=== PATIENT | female | born 1980 | race Caucasian/White ===

== ENCOUNTER 2016-12-26 12:42 | Outpatient (CLI) | payer MEDICAID ==
[2016-12-26 18:47] LABS: BASOPHILS # (AUTO) 0.1 10^3/uL (0.0-0.1); BASOPHILS % (AUTO) 0.8 %; EOSINOPHILS # (AUTO) 0.2 10^3/uL (0.0-0.7); EOSINOPHILS % (AUTO) 1.5 %; HCT - HEMATOCRIT 40.4 % (37.0-47.0); HGB - HEMOGLOBIN 13.2 g/dL (12.0-16.0); LYMPHOCYTES # (AUTO) 2.5 10^3/uL (1.5-3.5); LYMPHOCYTES % (AUTO) 21.1 %; MEAN CORPUSCULAR HGB CONC 32.7 g/dL (32.0-36.0); MEAN CORPUSCULAR VOLUME 79.4 fL (81.0-99.0); MONOCYTES # (AUTO) 0.8 10^3/uL (0.0-1.0); MONOCYTES % (AUTO) 6.6 %; NEUTROPHILS # (AUTO) 8.2 10^3/uL (1.5-6.6); RED BLOOD COUNT 5.09 10^6/uL (4.20-5.40); RED CELL DISTRIBUTION WIDTH 14.3 % (12.0-15.0); UNCORRECTED WHITE BLOOD COUNT 11.8 x10^3/uL; WHITE BLOOD COUNT 11.8 x10^3/uL (4.8-10.8)
[2016-12-26 18:49] LABS: BILIRUBIN,URINE NEGATIVE (NEGATIVE)
[2016-12-26 19:03] LABS: ALBUMIN/GLOBULIN RATIO 1.2 (1.0-2.2); BILIRUBIN,TOTAL 0.6 mg/dL (0.2-1.0); BUN - BLOOD UREA NITROGEN 12 mg/dL (6-20); CALCIUM 9.5 mg/dL (8.5-10.3); CARBON DIOXIDE - CO2 26 mmol/L (21-32); CHLORIDE 109 mmol/L (101-111); CHOL/HDL RATIO 4.9 (<4.4); CHOLESTEROL 175 mg/dL; CREATININE 0.8 mg/dL (0.4-1.0); GFR - MDRD 81 (>89); GLUCOSE 90 mg/dL (70-100); HDL CHOLESTEROL 36 mg/dL; LDL/HDL RATIO 3.3 (<4.4); LIPASE 24 U/L (22-51); POTASSIUM 3.9 mmol/L (3.5-5.0); SODIUM 142 mmol/L (135-145); TOTAL PROTEIN 7.9 g/dL (6.7-8.2); TRIGLYCERIDES 105 mg/dL; VLDL CHOLESTEROL 21 mg/dL
[2016-12-26 19:11] LABS: WBC,URINE 0-3 /HPF (0-5)
[2016-12-26 19:33] LABS: HEMOGLOBIN A1C 0.5 g/dL
[2016-12-26 20:09] LABS: H. PYLORI IGG ANTIBODY Negative (Negative); HPYLORI NEG QC Negative (Negative); HPYLORI POS QC POSITIVE (Positive)
== END 2016-12-26 12:43 | disposition home or self-care (01) ==
LOC: LAB.F 12:42
PROVIDERS: ATTEND Internal Medicine
DX: R10.11 Right upper quadrant pain (principal); E66.9 Obesity, unspecified
CPT/HCPCS: 36415; 80053; 80061; 81001; 83036; 83690; 84443; 85025; 87339

== ENCOUNTER 2016-12-26 16:59 | Outpatient (CLI) | payer MEDICAID ==
--- NOTE | 2016-12-31 08:32 | Ultrasound Report ---
RIGHT UPPER QUADRANT ULTRASOUND: 12/26/2016 CLINICAL INDICATION: Pain. TECHNIQUE: Real-time scanning was performed with paper sales representative static images obtained. FINDINGS: The liver measures 16.1 cm. There is a 9 x 6 x 5 mm hemangioma in the left lobe. No susp icious solid hepatic lesion or intrahepatic biliary dilatation is present. The common bile duct frank ures 4 mm. The gallbladder is normal. The right kidney measures 11.7 cm, and appears unremarkable. No ascites is noted. IMPRESSION: INCIDENTAL HEPATIC HEMANGIOMA. NO EVIDENCE OF CHOLELITHIASIS OR BILIARY OBSTRUCTION. JOB #: [id number] EXT JOB #:[id number]
== END 2016-12-26 17:00 | disposition home or self-care (01) ==
LOC: DI 16:59
PROVIDERS: ATTEND Internal Medicine
DX: R10.11 Right upper quadrant pain (principal)
CPT/HCPCS: 76705

== ENCOUNTER 2017-04-12 15:35 | Outpatient (CLI) | payer MEDICAID ==
--- NOTE | 2017-04-12 18:52 | XRAY Report ---
EXAM: RIGHT FOOT RADIOGRAPHY EXAM DATE: 04/12/2017 03:53 PM. CLINICAL HISTORY: Pain, lateral SIDE OF RT FOOT. COMPARISON: None. TECHNIQUE: 3 views. FINDINGS: Bones: Normal. No fractures or bone lesions. Joints: Normal. No subluxations. Soft Tissues: Unremarkable. IMPRESSION: Normal foot radiography. [facility] Referring Provider Line: [phone] SITE ID: [id number]
== END 2017-04-12 15:36 | disposition home or self-care (01) ==
LOC: DI 15:35
PROVIDERS: ATTEND Podiatrist
DX: M79.671 Pain in right foot (principal)

== ENCOUNTER 2017-07-20 14:21 | Outpatient (CLI) | payer MEDICAID ==
[2017-07-20 14:38] LABS: HGB - HEMOGLOBIN 11.5 g/dL (12.0-16.0); MEAN CORPUSCULAR HEMOGLOBIN 26.1 pg (27.0-31.0); MEAN CORPUSCULAR HGB CONC 33.3 g/dL (32.0-36.0); MEAN CORPUSCULAR VOLUME 78.5 fL (81.0-99.0); MEAN PLATELET VOLUME 8.6 fL (7.9-10.8); RED BLOOD COUNT 4.42 10^6/uL (4.20-5.40); RED CELL DISTRIBUTION WIDTH 15.7 % (12.0-15.0); WHITE BLOOD COUNT 9.7 x10^3/uL (4.8-10.8)
[2017-07-20 14:50] LABS: ALBUMIN/GLOBULIN RATIO 1.3 (1.0-2.2); BILIRUBIN,TOTAL 0.5 mg/dL (0.2-1.0); CALCIUM 9.2 mg/dL (8.5-10.3); CREATININE 0.8 mg/dL (0.4-1.0); TOTAL PROTEIN 7.2 g/dL (6.7-8.2)
[2017-07-20 14:56] LABS: HB2 TOTAL 12.4 g/dL; HEMOGLOBIN A1C 0.47 g/dL; HEMOGLOBIN A1C % 5.6 % (4.6-6.2)
[2017-07-20 16:05] LABS: THYROID STIMULATING HORMONE 2.01 uIU/mL (0.34-5.60)
[2017-07-20 16:10] LABS: FREE T4 (FREE THYROXINE) 0.78 ng/dL (0.58-1.64)
[2017-07-20 16:33] LABS: FOLLICLE STIMULATING HORMONE 2.49 mIU/mL
[2017-07-20 16:34] LABS: LUTEINIZING HORMONE 6.43 mIU/mL
== END 2017-07-20 14:22 | disposition home or self-care (01) ==
LOC: LAB 14:21
PROVIDERS: ATTEND Nurse Practitioner Obstetrics & Gynecology
DX: N92.0 Excessive and frequent menstruation with regular cycle (principal)
CPT/HCPCS: 80053; 81599; 82670; 83001; 83002; 83036; 84439; 84443; 84481

== ENCOUNTER 2017-08-19 18:47 | Outpatient (CLI) | payer MEDICAID ==
--- NOTE | 2017-08-20 09:33 | Ultrasound Report ---
PELVIC ULTRASOUND: 08/19/2017 CLINICAL INDICATION: Frequent menstruation. TECHNIQUE: Transabdominal pelvic ultrasound performed for global evaluation. Transvaginal pelvic ultrasound performed for detailed evaluation. Real-time scanning performed and static images obtained. FINDINGS: The uterus is anteverted, measuring 9.8 x 4.8 x 4.5 cm. The endometrium measures 8 mm. No focal myometrial lesion is seen. The left ovary is unremarkable, measuring 3.5 x 2.6 x 1.9 cm. The right ovary is unremarkable, measuring 3.3 x 3.1 x 2.7 cm. Interposed between the right ovary and the uterus is a complex predominantly cystic structure, measuring approximately 3 cm, likely representing a dilated fallopian tube. No free fluid is present. IMPRESSION: LIKELY RIGHT HYDROSALPINX. NO ENDOMETRIAL OR MYOMETRIAL LESION IS APPRECIATED. TD: 08/20/2017 09:32 MTDD
== END 2017-08-19 18:48 | disposition home or self-care (01) ==
LOC: DI 18:47
PROVIDERS: ATTEND Nurse Practitioner Obstetrics & Gynecology
DX: N92.0 Excessive and frequent menstruation with regular cycle (principal)
CPT/HCPCS: 76830; 76856

== ENCOUNTER 2017-09-05 18:35 | Outpatient (CLI) | payer MEDICAID | END 2017-09-05 18:36 | disposition home or self-care (01) | LOC: LAB 18:35 | PROVIDERS: ATTEND Obstetrics & Gynecology | DX: N92.0 Excessive and frequent menstruation with regular cycle (principal); L68.0 Hirsutism | CPT/HCPCS: 36415; 82626; 82627; 85651 ==

== ENCOUNTER 2017-09-25 14:28 | Outpatient (CLI) | payer MEDICAID ==
[2017-09-25 16:08] LABS: THYROID STIMULATING HORMONE 2.48 uIU/mL (0.34-5.60)
[2017-09-25 16:12] LABS: FREE T4 (FREE THYROXINE) 0.71 ng/dL (0.58-1.64)
[2017-09-25 16:35] LABS: FOLLICLE STIMULATING HORMONE 5.66 mIU/mL
[2017-09-25 16:36] LABS: LUTEINIZING HORMONE 9.05 mIU/mL
[2017-09-27 18:47] LABS: DHEA SULFATE 220 mcg/dL (23-266)
[2017-09-28 20:11] LABS: 17-HYDROXYPREGNENOLONE 232 ng/dL
== END 2017-09-25 14:29 | disposition home or self-care (01) ==
LOC: LAB 14:28
PROVIDERS: ATTEND Internal Medicine Endocrinology, Diabetes & Metabolism
DX: L68.0 Hirsutism (principal)
CPT/HCPCS: 36415; 81599; 82530; 82627; 83001; 83002; 84143; 84146; 84270; 84305; 84402; 84403; 84439; 84443

== ENCOUNTER 2017-09-30 16:01 | Outpatient (CLI) | payer MEDICAID ==
[2017-09-30 16:43] LABS: BASOPHILS # (AUTO) 0.1 10^3/uL (0.0-0.1); BASOPHILS % (AUTO) 1.2 %; EOSINOPHILS # (AUTO) 0.1 10^3/uL (0.0-0.7); EOSINOPHILS % (AUTO) 1.6 %; HGB - HEMOGLOBIN 12.3 g/dL (12.0-16.0); LYMPHOCYTES # (AUTO) 2.4 10^3/uL (1.5-3.5); LYMPHOCYTES % (AUTO) 27.3 %; MEAN CORPUSCULAR HEMOGLOBIN 25.4 pg (27.0-31.0); MEAN CORPUSCULAR HGB CONC 32.2 g/dL (32.0-36.0); MEAN CORPUSCULAR VOLUME 78.9 fL (81.0-99.0); MEAN PLATELET VOLUME 9.3 fL (7.9-10.8); MONOCYTES # (AUTO) 0.7 10^3/uL (0.0-1.0); MONOCYTES % (AUTO) 8.5 %; NEUTROPHILS # (AUTO) 5.3 10^3/uL (1.5-6.6); NEUTROPHILS % (AUTO) 61.4 %; PLT - PLATELET COUNT 279 10^3/uL (130-450); RED BLOOD COUNT 4.84 10^6/uL (4.20-5.40); RED CELL DISTRIBUTION WIDTH 14.8 % (12.0-15.0); WHITE BLOOD COUNT 8.7 x10^3/uL (4.8-10.8)
[2017-09-30 16:54] LABS: BILIRUBIN,URINE NEGATIVE (NEGATIVE); GLUCOSE, URINE (UA) NEGATIVE (NEGATIVE); KETONES,URINE (UA) 15 mg/dL (NEGATIVE); LEUKOCYTE ESTERASE, URINE NEGATIVE (NEGATIVE); NITRITE,URINE NEGATIVE (NEGATIVE); OCCULT BLOOD,URINE SMALL (NEGATIVE); PH,URINE 5.5 PH (5.0-7.5); PROTEIN,URINE NEGATIVE (NEGATIVE); UROBILINOGEN,URINE 0.2 (NORMAL) E.U./dL (NORMAL)
[2017-09-30 16:57] LABS: CLARITY,URINE HAZY (CLEAR); HCG UR QUAL NEGATIVE
[2017-09-30 16:58] LABS: ALBUMIN 4.5 g/dL (3.2-5.5); ALBUMIN/GLOBULIN RATIO 1.3 (1.0-2.2); BILIRUBIN,TOTAL 0.6 mg/dL (0.2-1.0); CALCIUM 9.4 mg/dL (8.5-10.3); CREATININE 0.9 mg/dL (0.4-1.0); TOTAL PROTEIN 8.1 g/dL (6.7-8.2)
== END 2017-09-30 16:02 | disposition home or self-care (01) ==
LOC: LAB 16:01
PROVIDERS: ATTEND Obstetrics & Gynecology
DX: R10.2 Pelvic and perineal pain (principal); N92.0 Excessive and frequent menstruation with regular cycle
CPT/HCPCS: 36415; 80053; 81003; 81025; 85025; 86850; 86900; 86901

== ENCOUNTER 2017-10-02 06:09 | Day surgery (SDC) | payer MEDICAID ==
--- NOTE | 2017-09-30 18:22 | PREOP HISTORY & PHYSICAL ---
DATE OF SERVICE: 09/25/2017 Physician: Silverio Vargas MD DIAGNOSES: Bilateral lower quadrant pain; severe dysmenorrhea and menorrhagia. PROCEDURE: Laparoscopy with possible ablation of endometriosis; hysteroscopy and dilation and curettage. HISTORY OF PRESENT ILLNESS: Patient is a 37-year-old nulligravida who originally presented to [facility] for heavy menses that lasted greater than seven days and included clots. Endometrial biopsy was performed. Pelvic ultrasound revealed a normal size uterus with an 8 mm stripe. No fibroids were visualized. Between the right and left ovary there was a complex cystic structure, approximately 3 cm in dilation. There is no free fluid. Patient had male hair patterning. Basic endocrinology labs noted a testosterone normal at 36 nanograms/dL. DHEA 304 normal. DHEAS normal, hemoglobin A1c 81. Fasting glucose 94, normal. Originally patient was thought to have polycystic ovarian syndrome. Patient was followed and consistently complained of lower quadrant pain and severe dysmenorrhea, left-sided greater than right. There was no GI, dietary or association with bowel movement. At times, her pain was quite severe, 7/10-8/ 10. She is not interested in contraception since she wants to achieve . We discussed trial of Lupron, which was rejected. Her last Pap in July was normal. PAST MEDICAL HISTORY: No chronic cardiovascular or pulmonary disease. History of gastric reflux. PAST SURGICAL HISTORY: No prior surgeries. REVIEW OF SYSTEMS CONSTITUTIONAL: Negative. CARDIOVASCULAR: Negative. PULMONARY: Negative. GASTROINTESTINAL: Negative. GENITOURINARY: Reference HPI and outpatient notes. SKIN: Patient notes hair loss. MUSCULOSKELETAL: No reported joint pain or joint tenderness. PSYCHOLOGIC: -- PHYSICAL EXAMINATION GENERAL: Well groomed, wearing a fur cap due to relative baldness. VITAL SIGNS: Posted. HEENT: Supple neck. No thyromegaly. Dentition in good repair. No icteric sclerae. EOMI. LUNGS: Clear. HEART: Regular, no murmur, no gallop. BREASTS: Deferred. ABDOMEN: Truncal obesity. No hepatosplenomegaly. Reported lower quadrant tenderness bilaterally. No herniations detected. PELVIC: External genitalia normal. Bartholin glands. No vulvovaginitis. VAGINA: Normal moisture, pink. No prolapse. No abnormal discharge. CERVIX: Nulliparous. Clear mucous discharge, no ulceration. UTERUS: Normal size, anteverted, anteflexed. ADNEXA: Nontender, normal ovarian size. MUSCULOSKELETAL: No range of motion, normal ambulation. No edema. NEUROLOGIC: Grossly intact. LABORATORY DATA: Pending. ASSESSMENT: Patient has longstanding pelvic pain complaints. It was originally thought to be polycystic ovarian syndrome. The pain is fairly severe and the patient wishes to preserve fertility if possible. A laparoscopy is recommended to rule out endometriosis or adhesive disease/PID. Cultures are negative. Additionally, there is heavy uterine bleeding and patient has a stenotic cervical os. Hysteroscopy is recommended for study. PLAN: Discussed possible diagnosis inclusive of pelvic inflammatory disease, endometriosis, adhesive disease and severe dysmenorrhea. Patient is aware that a laparoscopy, hysteroscopy may not be revealing in terms of her diagnosis. Risks were reviewed, inclusive of blood loss, potential transfusion, perforation, damage to bowel and urinary tract and a second surgery. No guarantee was given of a cure and that there is a component of postoperative pain. After discussing the mechanics of the procedure, patient wishes that her laparoscopy entry wound be placed below the umbilicus and not within the umbilical ring. Additionally, due to her kotlik beliefs, if any tissue is taken, it should be returned to her after pathology examination. All questions were answered and informed consent paperwork signed. TD: 09/30/2017 18:21 JUAN JOSE
[2017-10-02] MEDS ORDERED: LACTATED RINGERS 1,000 ML IV ONE ×2 (06:30→08:47)
[2017-10-02 06:41] VITALS: BP 133/57
[2017-10-02] MEDS ORDERED: BUPIVACAINE 0.25%-EPI 1:200000 PF 30 ML VIAL ONE (07:27)
[2017-10-02] MEDS ORDERED: ONDANSETRON 4 MG/2 ML VIAL IVP ONE (08:10)
[2017-10-02] MEDS ORDERED: NEOSTIGMINE 1 MG/1 ML 10 ML MDV IVP ONE (08:10)
[2017-10-02] MEDS ORDERED: KETOROLAC 30 MG/ML VIAL IVP ONE (08:10)
[2017-10-02] MEDS ORDERED: MIDAZOLAM 2 MG/2 ML VIAL IVP ONE (08:10)
[2017-10-02] MEDS ORDERED: DEXAMETHASONE 4 MG/ML VIAL IVP ONE (08:10)
[2017-10-02] MEDS ORDERED: PROPOFOL 200 MG/20 ML VIAL IVP ONE (08:10)
[2017-10-02] MEDS ORDERED: fentaNYL 100 MCG/2 ML VIAL IVP ONE (08:10)
[2017-10-02] MEDS ORDERED: ROCURONIUM 50 MG/5 ML VIAL IVP ONE (08:10)
[2017-10-02] MEDS ORDERED: GLYCOPYRROLATE 1 MG/5 ML VIAL IVP ONE (08:10)
[2017-10-02] MEDS ORDERED: METHYLENE BLUE 0.5% 50 MG/10 ML AMPULE ONE (08:44)
[2017-10-02] MEDS ORDERED: METHYLENE BLUE 0.5% 50 MG/10 ML AMPULE IR ONE (09:05)
[2017-10-02] MEDS ORDERED: BUPIVACAINE 0.25%-EPI 1:200000 PF 30 ML VIAL SUBQ ONE ×2 (09:05)
--- NOTE | 2017-10-02 10:05 | OPERATIVE REPORT ---
Operative Report - General Procedure Date: 10/02/17 Planned Procedure: Diagnostic laparoscopy; hysteroscopy; possible D&C Pre-Op Diagnosis: Bilateral lower quadrant and pelvic pain; menorrhagia Procedure Performed: Diagnostic laparoscopy; hysteroscopy with hysteroscopic polypectomy; excision of inflammatory cystic pelvic mass; lysis of extensive adhesions Post Op Diagnosis: Pelvic inflammatory disease; inflammatory pelvic cystic masses; multiple ut - Procedure Note Primary Surgeon: Silverio Vargas MD Secondary Surgeon: Abdirizak Lindo MD (consulting surgery, general surgery) Anesthesia Technique: General ET tube Pathology: Cystic mass from pelvis and peritoneal IV Fluids (mL): 1,500 Estimated Blood Loss (mL): 50 Urine Output (mL): 350 Drain/Tube Type: Other (Birmingham catheter clear urine) Complications: None
[2017-10-02] MEDS: MORPHINE 10 MG/ML VIAL ONE ×4 (11:05→11:17)
[2017-10-02] MEDS: fentaNYL 100 MCG/2 ML VIAL ONE ×2 (11:25→11:31)
[2017-10-02] MEDS ORDERED: ONDANSETRON 4 MG/2 ML VIAL IVP PRN (12:29)
[2017-10-02] MEDS: cefOXitin 2 GM in SODIUM CHLORIDE 0.9% MINIBAG 100 ML IV SCH ×3 (12:37→22:53)
[2017-10-02] MEDS: KETOROLAC 30 MG/ML VIAL IVP SCH (12:37)
[2017-10-02] MEDS: MORPHINE 2 MG/ML SYRINGE IVP PRN ×2 (12:57→17:12)
[2017-10-02] MEDS: LACTATED RINGERS 1,000 ML IV SCH ×2 (12:58→21:47)
[2017-10-02] MEDS ORDERED: SODIUM CHLORIDE FLUSH 0.9% 10 ML SYRINGE ONE (12:59)
[2017-10-02] MEDS: DOXYCYCLINE 100 MG TABLET PO SCH ×2 (15:28→22:47)
[2017-10-02] MEDS ORDERED: HYDROcod/ACETAM 5/325 MG TABLET PO SCH (16:00)
[2017-10-02] MEDS ORDERED: HYDROcod/ACETAM 5/325 MG TABLET PO PRN (17:23)
--- NOTE | 2017-10-02 17:42 | OPERATIVE REPORT ---
DATE OF SERVICE: 10/02/2017 Physician: Silverio Vargas MD PREOPERATIVE DIAGNOSES 1. Bilateral lower quadrant and pelvic pain. 2. Menorrhagia. POSTOPERATIVE DIAGNOSES 1. Pelvic inflammatory disease. 2. Inflammatory cystic masses. 3. Extensive pelvic adhesions. 4. Uterine fibroid, posterior aspect. 5. Multiple endometrial polyps, benign appearing. PROCEDURES PERFORMED 1. Diagnostic laparoscopy. 2. Hysteroscopy with hysteroscopic polypectomies w Myosure. 3. Excision of inflammatory cystic pelvic mass. 4. Lysis of extensive adhesions. SURGEON: Silverio Vargas MD, FACOG CONSULTING SURGEON: Abdirizak Lindo MD, FACS ANESTHESIA: Jerome Granado, certified nurse machine cloth examiner ANESTHESIA TYPE: General with ET tube. COMPLICATIONS: None. ESTIMATED BLOOD LOSS: 50 mL or less. INTRAVENOUS FLUIDS: 1500 mL crystalloids. URINE OUTPUT: 350 mL, clear. DRAINS: Birmingham, functional with clear fluid. FINDINGS: External exam finds no vulvar lesions. The vagina appears normal with pinkish mucosa and rugae. There is no evidence of prolapse. The cervix is nulliparous with blood-tinged cervical mucus. Uterus is normal, anteverted, and slightly anteflexed. Laparoscopy finds extensive pelvic adhesions involving the rectal colon and posterior surface of the uterus and a inflammatory mass in the Right adnexa. The mass has cystic component with inflammatory vessels. The mass measures approximately 4 x 3 cm. There are adhesions extending from the mass to the lower left ovarian fossa and ascending colon. There was a vascular adhesion between the ascending colon and the abdominal sidewall. Initially the appendix was suspected to be involved but inspection showed it to be without pathological change. Post adhesional lysis and cyst excision chromopertubation was done that demonstrated both tubes were open. Hysteroscopy reveals multiple polypoid growths, at least 4, on the posterior and anterior surface of the uterine lining. Cornua areas are open to flow. Post-hysteroscopy, all aforementioned polypoid growths were removed. INDICATIONS AND INFORMED CONSENT: Patient reported bilateral lower quadrant pain left greater than right. In addition there was a long-standing complaint of pelvic pain and suspected subfertility. The procedure first objective was to investigate her pain then remove the cystic mass documented on ultrasound and finally conserve fertility if possible. Laparoscopy and the intended procedure were discussed with the patient and her in detail. She is aware the risk: Blood loss, transfusion, infection, damage to urinary tract and intestines. No guarantee of pain relief was made. If possible, patient desires conservation of her tubes and ovaries. DESCRIPTION OF PROCEDURE: Patient was brought to the operating room and placed on the table in the supine position. She was uneventfully induced and intubated. She was moved to the low dorsal lithotomy position in [facility]. She was prepped and draped in a customary sterile fashion. Time-out briefing was done per protocol. HUMI uterine manipulator and Birmingham catheter were inserted. A small incision was placed under the umbilical skin fold outside of the umbilical ring as the patient requested. 5 mm Visiport trocar was then placed under direct visualization through the skin wound, fascial layers and into the peritoneal cavity uneventfully. The abdominal cavity was insufflated with CO2 gas under 12 mm of pressure. 5 mm left and right lower quadrant operating ports were then placed. The abdominal cavity was assessed. First the adhesion gluing the right ascending colon to the abdominal sidewall and anterior wall was lysed with LigaSure. Multiple applications in a methodical sequence bites were necessary and the dissection stayed as far away from the colon to minimize the chance of thermal injury. Next the Right adnexal mass was placed on medial tension to facilitate dissection. In a methodical fashion, the adhesions were lysed with LigaSure until the mass itself was liberated from the right tube, right ovary and ovarian fossa. This allowed access to the posterior uterine adhesions. These were lysed with blunt and sharp dissection augmented with LigaSure in a methodical Min fashion that maintained a margin of safety to prevent colonic thermal injury. The mass included thick adhesions of colonic epiploica and possibly appendix. Dr. Lindo of general surgery was called into consultation. The dissection was continued with the use of LigaSure. Once the mass was liberated from the colon it was evident that the appendix was uninvolved. It was elected to leave the appendix intact. In order to remove the inflammatory mass, the right lower quadrant operating port was traded up from a 5 mm Visiport to a 12 mm port. Catch bag was inserted into the abdomen and the inflammatory mass inserted into the catch bag; after which, the 12 mm port and catch bag were removed as one intact without rupture of the bag. Elbert Macedo closure device was then used to close the abdominal fascia defect with 2-0 Vicryl sutures. At this point Dr. Lindo scrubbed out of the case. Dilute methylene blue solution (250 cc sterile normal saline with 1 vial of sterile methylene blue) was then injected through the HUMI central port. Both tubes filled with blue dye and spilled through the fimbriated ends. Next all CO2 gas was removed from the abdomen and 500 cc of sterile normal saline placed. The patient was placed in a deep Trendelenburg to facilitate complete evacuation of CO2. Next all trochars were removed. The skin was closed with interrupted subcuticular stitches of 4-0 Monocryl and dressed with Dermabond. Approximately 30 cc of quarter percent Marcaine with epinephrine was then placed into each of the trocar wounds for patient comfort. Next the HUMI manipulator was removed. The anterior cervical lip was grasped with a single-tooth tenaculum for stabilization. The endocervical canal was then gently dilated to Hegar size 7. 30 hysteroscope was then inserted into the uterine cavity under direct visualization. There were multiple benign appearing polyps. Miyosure was then inserted through the central operating port of the hysteroscope. In a systematic fashion the polyps were shaved to the base of the endometrium. Care was taken not to be over aggressive with myossure to prevent denuding excessive amounts of endometrium. Pre-and postoperative photos were taken. Patient was then awakened from general anesthesia and extubated. She went to the recovery room in stable condition. For pain control it is expected that the patient will remain overnight as a same day surgery boarder and be reevaluated in the morning. Additionally, the patient is nulligravida and has pelvic inflammatory disease; accordingly, we will begin a 24 hour course of IV antibiotics with Mefoxin and doxycycline. We do not anticipate hospitalization to last more than 24 hours. Patient and family were informed of intraoperative events. TD: 10/02/2017 12:47 JUAN JOSE
[2017-10-02] MEDS: IBUPROFEN 600 MG TABLET PO PRN (20:02)
[2017-10-03] MEDS: DOXYCYCLINE 100 MG TABLET PO SCH ×2 (02:36→16:18)
[2017-10-03] MEDS: IBUPROFEN 600 MG TABLET PO PRN ×4 (02:36→19:49)
[2017-10-03] MEDS: LACTATED RINGERS 1,000 ML IV SCH ×3 (03:35→14:29)
[2017-10-03] MEDS: cefOXitin 2 GM in SODIUM CHLORIDE 0.9% MINIBAG 100 ML IV SCH ×3 (04:02→16:18)
[2017-10-03 07:12] LABS: BASOPHILS % (AUTO) 0.3 %; EOSINOPHILS % (AUTO) 0.3 %; HGB - HEMOGLOBIN 9.7 g/dL (12.0-16.0); LYMPHOCYTES # (AUTO) 2.3 10^3/uL (1.5-3.5); LYMPHOCYTES % (AUTO) 18.7 %; MEAN CORPUSCULAR HEMOGLOBIN 25.1 pg (27.0-31.0); MEAN CORPUSCULAR HGB CONC 31.7 g/dL (32.0-36.0); MEAN CORPUSCULAR VOLUME 79.2 fL (81.0-99.0); MEAN PLATELET VOLUME 8.8 fL (7.9-10.8); MONOCYTES # (AUTO) 1.3 10^3/uL (0.0-1.0); MONOCYTES % (AUTO) 10.8 %; NEUTROPHILS # (AUTO) 8.6 10^3/uL (1.5-6.6); NEUTROPHILS % (AUTO) 69.9 %; PLT - PLATELET COUNT 210 10^3/uL (130-450); RED BLOOD COUNT 3.87 10^6/uL (4.20-5.40); WHITE BLOOD COUNT 12.3 x10^3/uL (4.8-10.8)
[2017-10-03] MEDS: KETOROLAC 30 MG/ML VIAL IVP SCH (11:54)
--- NOTE | 2017-10-03 19:30 | PROVIDER PROGRESS NOTE ---
Subjective - Prog Note Date Prog Note Date: 10/03/17 Prog Note Time: 10:00 - Subjective Pt reports feeling: Improved Subjective: Patient feels well but her pain is not completely controlled. Earlier in her extended-stay she had nausea but this is been controlled with Zofran. She has no fevers, chills or foul discharge. He is tolerating fluids and solids at this time. She has not had a bowel movement. Objective - Vital Signs/Intake & Output Intake & Output: Intake & Output 09/30/17 10/01/17 10/02/17 10/03/17 23:59 23:59 23:59 23:59 Intake Total 1200 2898 Output Total 350 Balance 850 2898 - Lab Results Fish Bones: 10/03/17 07:07 Other Labs: Lab Results x24hrs 10/03/17 Range/Units 07:07 WBC 12.3 H (4.8-10.8) x10^3/uL RBC 3.87 L (4.20-5.40) 10^6/uL Hgb 9.7 L (12.0-16.0) g/dL Hct 30.6 L (37.0-47.0) % MCV 79.2 L (81.0-99.0) fL MCH 25.1 L (27.0-31.0) pg MCHC 31.7 L (32.0-36.0) g/dL RDW 15.0 (12.0-15.0) % Plt Count 210 (130-450) 10^3/uL MPV 8.8 (7.9-10.8) fL Neut # 8.6 H (1.5-6.6) 10^3/uL Lymph # 2.3 (1.5-3.5) 10^3/uL Comal # 1.3 H (0.0-1.0) 10^3/uL Eos # 0.0 (0.0-0.7) 10^3/uL Baso # 0.0 (0.0-0.1) 10^3/uL Absolute Nucleated RBC 0.00 x10^3/uL Nucleated RBC % 0.0 /100WBC Exam - Exam Vital Signs: Vital Signs (72 hours) 10/02/17 10/02/17 10/02/17 06:39 10:08 10:11 Temperature 97.2 F L Heart Rate [ 72 Apical] Respiratory 16 Rate Blood Pressure 133/57 H [Brachial artery] O2 Saturation 100 100 100 10/02/17 10/02/17 10/02/17 10:16 10:20 10:26 Temperature Heart Rate [ Apical] Respiratory Rate Blood Pressure [Brachial artery] O2 Saturation 100 100 100 10/02/17 10/02/17 10/02/17 10:36 10:40 10:45 Temperature Heart Rate [ Apical] Respiratory Rate Blood Pressure [Brachial artery] O2 Saturation 100 100 100 10/02/17 10/02/17 10/02/17 10:51 11:00 11:10 Temperature Heart Rate [ Apical] Respiratory Rate Blood Pressure [Brachial artery] O2 Saturation 100 100 100 10/02/17 10/02/17 10/02/17 11:20 11:25 11:33 Temperature Heart Rate [ Apical] Respiratory Rate Blood Pressure [Brachial artery] O2 Saturation 100 100 96 10/02/17 11:40 Temperature Heart Rate [ Apical] Respiratory Rate Blood Pressure [Brachial artery] O2 Saturation 99 General: Oriented x3, Mild distress HEENT: Mucous membr. moist/pink Lungs: Clear to auscultation Cardiovascular: Regular rate, No murmurs Abdomen: Normal bowel sounds, Other (Appropriate postsurgical tenderness) Extremities: No edema Skin: No rashes Neurological: Normal speech, Normal tone, Sensation intact, Cranial nerves 3-12 NL Psych/Mental Status: Mental status NL, Mood NL Assess/Plan - Additional Planning My Orders: My Active Orders 10/03/17 03:30 Doxycycline [Vibramycin] 100 mg PO Q12H Assessment/Plan - Assessment/Plan Assessment: Patient was diagnosed with pelvic inflammatory disease and in fact had a large cystic inflammatory mass removed from the right adnexa. She was begun on cefotetan in doxycycline is recommended for nulligravida is who have been diagnosed with PID. The medications have been well tolerated. Patient's pain is gradually coming into control. Anticipate patient may be ready for discharge by late afternoon. Plan: If patient continues to improve she may be discharged later this afternoon. In preparation for discharge I reviewed warning sign and callback instructions. Patient had previously had prescriptions for Motrin, hydrocodone 5 mg and Colace written.
--- NOTE | 2017-10-03 19:36 | Discharge Plan ---
Discharge Plan Disposition: 01 Home, Self Care Condition: Good Diet: Regular Activity Restrictions: Activity as Tolerated Shower Restrictions: No Driving Restrictions: No Weight Bearing: Full Weight No Smoking: If you smoke, Please STOP! Call for help. Follow-up with: Lynn Molina MD [Primary Care Provider] -
== END 2017-10-03 20:00 | disposition home or self-care (01) ==
LOC: SDS 06:09 → OBS 12:26 → SDS 10-03 20:00
PROVIDERS: ATTEND Obstetrics & Gynecology
PROC: 0UDB8ZX Extraction of Endometrium, Via Natural or Artificial Opening Endoscopic, Diagnostic (ICD-10-PCS; 2017-10-02)
PROC: 0DBW4ZZ Excision of Peritoneum, Percutaneous Endoscopic Approach (ICD-10-PCS; 2017-10-02)
PROC: 3E1P78Z Irrigation of Female Reproductive using Irrigating Substance, Via Natural or Artificial Opening (ICD-10-PCS; 2017-10-02)
PROC: 0UB98ZX Excision of Uterus, Via Natural or Artificial Opening Endoscopic, Diagnostic (ICD-10-PCS; principal; 2017-10-02 07:30)
DX: N73.9 Female pelvic inflammatory disease, unspecified (principal); K66.8 Other specified disorders of peritoneum; N73.6 Female pelvic peritoneal adhesions (postinfective); N92.0 Excessive and frequent menstruation with regular cycle; D25.9 Leiomyoma of uterus, unspecified; R11.0 Nausea
CPT/HCPCS: 36415; 58558; 58662; 85025; 87070; 87205; A9270; J2270; J7120; 88108; 88305

== ENCOUNTER 2018-01-27 08:03 | Emergency (ER) | payer MEDICAID ==
--- NOTE | 2018-01-27 08:21 | ED Physician Documentation ---
PD HPI CHEST PAIN - Stated complaint Stated Complaint: SOA/FATIGUE/CHEST TIGHTNESS - Chief complaint Chief Complaint: General - History obtained from History obtained from: Patient - History of Present Illness Timing - onset: Last night, Yesterday Timing - onset during: Rest Timing - duration: Hours (12-18) Timing - details: Gradual onset, Still present Quality: Pressure, Tightness Location: Substernal, Left chest Radiation: No: Jaw, Neck, Back Improved by: No: Rest Worsened by: No: Exertion, Inspiration, Palpation Associated symptoms: Shortness of air, Feeling faint / dizzy. No: Diaphoresis, Nausea, General Weakness, Palpitations, Cough Similar symptoms before: Has not had sx before Recently seen: Not recently seen Review of Systems Constitutional: denies: Fever, Chills, Myalgias Nose: denies: Rhinorrhea / runny nose, Congestion Throat: denies: Sore throat Cardiac: reports: Chest pain / pressure, Palpitations. denies: Pedal edema, Calf pain Respiratory: reports: Dyspnea. denies: Cough, Wheezing GI: denies: Abdominal Pain, Nausea, Vomiting : denies: Dysuria, Frequency Skin: denies: Rash, Lesions Neurologic: reports: Generalized weakness. 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 - Present Medications Home Medications: Ambulatory Orders Medication Instructions Recorded Confirmed Dexamethasone [Decadron] 4 mg PO DAILY #5 tablet 01/27/18 Tramadol HCl 50 mg PO Q6H PRN #20 tablet 01/27/18 - Allergies Allergies/Adverse Reactions: Allergies Allergy/AdvReac Type Severity Reaction Status Date / Time egg Allergy Unknown Verified 09/30/17 16:21 milk Allergy Unknown Verified 09/30/17 16:21 peanut Allergy Unknown Verified 09/30/17 16:21 wheat Allergy Unknown Verified 09/30/17 16:21 - Social History Does the pt smoke?: No Smoking Status: Never smoker - Family History Family history: reports: CAD PD ED PE NORMAL - Vitals Vital signs reviewed: Yes - General General: Alert and oriented X 3, No acute distress, Well developed/nourished - HEENT HEENT: Moist mucous membranes, Pharynx benign - Neck Neck: Supple, no meningeal sign, No bony TTP, No adenopathy - Cardiac Cardiac: RRR, No murmur - Respiratory Respiratory: Clear bilaterally, Other (no chestwall tenderness) - Abdomen Abdomen: Soft, Non tender - Female Female : Deferred - Rectal Rectal: Deferred - Back Back: No CVA TTP - Derm Derm: Normal color, Warm and dry - Extremities Extremities: No deformity, No tenderness to palpate, Normal ROM s pain, No edema , No calf tenderness / cord - Neuro Neuro: Alert and oriented X 3, No motor deficit, Normal speech Results - Vitals Vitals: Oxygen O2 Source Room air - EKG (time done) 08:17 Rate: Rate (enter#) (86) Rhythm: NSR [place]: Normal Intervals: Normal MS QRS: Normal Ischemia: Normal ST segments. No: ST elevation c/w ischemia, ST depression Compare to prior EKG: Old EKG unavailable - Labs Labs: Laboratory Tests 01/27/18 01/27/18 01/27/18 08:24 08:24 08:24 WBC 11.8 H RBC 4.43 Hgb 11.8 L Hct 35.4 L MCV 79.8 L MCH 26.6 L MCHC 33.3 RDW 15.1 H Plt Count 221 MPV 9.3 Neut # (Auto) 9.3 H Lymph # (Auto) 1.9 Reeves # (Auto) 0.5 Eos # (Auto) 0.0 Baso # (Auto) 0.1 Absolute Nucleated RBC 0.00 Nucleated RBC % 0.0 ESR Sodium 138 Potassium 3.4 L Chloride 107 Carbon Dioxide 23 Anion Gap 8.0 BUN 17 Creatinine 0.9 Estimated GFR (MDRD) 70 L Glucose 110 H Calcium 9.1 Total Bilirubin 0.7 AST 20 ALT 17 Alkaline Phosphatase 66 Troponin I < 0.04 B-Natriuretic Peptide Total Protein 7.3 Albumin 4.3 Globulin 3.0 Albumin/Globulin Ratio 1.4 Lipase 40 01/27/18 01/27/18 08:24 08:24 WBC RBC Hgb Hct MCV MCH MCHC RDW Plt Count MPV Neut # (Auto) Lymph # (Auto) Reeves # (Auto) Eos # (Auto) Baso # (Auto) Absolute Nucleated RBC Nucleated RBC % ESR 11 Sodium Potassium Chloride Carbon Dioxide Anion Gap BUN Creatinine Estimated GFR (MDRD) Glucose Calcium Total Bilirubin AST ALT Alkaline Phosphatase Troponin I B-Natriuretic Peptide 47 Total Protein Albumin Globulin Albumin/Globulin Ratio Lipase PD MEDICAL DECISION MAKING - ED course Complexity details: reviewed results, considered differential, d/w patient - Sepsis Event Vital Signs: Oxygen O2 Source Room air Departure - Departure Disposition: Home, Self Care Clinical Impression: Chest discomfort Condition: Stable Record reviewed to determine appropriate education?: Yes Instructions: ED Chest Pain Atypical Unkn Cause Follow-Up: Lynn Molina MD [Primary Care Provider] - Prescriptions: Dexamethasone [Decadron] 4 mg PO DAILY #5 tablet Tramadol HCl 50 mg PO Q6H PRN #20 tablet PRN Reason: Pain Comments: No signs of heart or lung process is causing her chest discomfort. There may be some inflammation through the chest wall or around the lung causing the symptoms. We will treat that with Decadron anti-inflammatory daily for 5 more days. Add Tylenol or tramadol if needed for pains. Drink lots of fluids. Recheck if not better over the next few days and return sooner if worse or other symptoms develop. Discharge Date/Time: 01/27/18 11:48
[2018-01-27 08:30] LABS: BASOPHILS # (AUTO) 0.1 10^3/uL (0.0-0.1); BASOPHILS % (AUTO) 0.5 %; EOSINOPHILS % (AUTO) 0.2 %; HGB - HEMOGLOBIN 11.8 g/dL (12.0-16.0); LYMPHOCYTES # (AUTO) 1.9 10^3/uL (1.5-3.5); LYMPHOCYTES % (AUTO) 15.9 %; MEAN CORPUSCULAR HEMOGLOBIN 26.6 pg (27.0-31.0); MEAN CORPUSCULAR HGB CONC 33.3 g/dL (32.0-36.0); MEAN CORPUSCULAR VOLUME 79.8 fL (81.0-99.0); MEAN PLATELET VOLUME 9.3 fL (7.9-10.8); MONOCYTES # (AUTO) 0.5 10^3/uL (0.0-1.0); MONOCYTES % (AUTO) 4.6 %; NEUTROPHILS # (AUTO) 9.3 10^3/uL (1.5-6.6); NEUTROPHILS % (AUTO) 78.8 %; PLT - PLATELET COUNT 221 10^3/uL (130-450); RED BLOOD COUNT 4.43 10^6/uL (4.20-5.40); RED CELL DISTRIBUTION WIDTH 15.1 % (12.0-15.0); WHITE BLOOD COUNT 11.8 x10^3/uL (4.8-10.8)
[2018-01-27 08:43] LABS: ALBUMIN 4.3 g/dL (3.2-5.5); ALBUMIN/GLOBULIN RATIO 1.4 (1.0-2.2); BILIRUBIN,TOTAL 0.7 mg/dL (0.2-1.0); CALCIUM 9.1 mg/dL (8.5-10.3); CREATININE 0.9 mg/dL (0.4-1.0); TOTAL PROTEIN 7.3 g/dL (6.7-8.2)
--- NOTE | 2018-01-27 08:59 | XRAY Report ---
Reason: chest pain Procedure Date: 01/27/2018 Accession Number: [id number] / [id number] Procedure: XR - Chest 2 View X-Ray CPT Code: 46119 FULL RESULT: EXAM: CHEST RADIOGRAPHY EXAM DATE: 01/27/2018 08:34 AM. CLINICAL HISTORY: Chest pain and weakness. COMPARISON: None. TECHNIQUE: 2 views. FINDINGS: Lungs/Pleura: No focal opacities evident. No pleural effusion. No pneumothorax. Normal volumes. Mediastinum: Heart and mediastinal contours are unremarkable. Other: Overlying EKG leads obscure portions of the cardiomediastinal silhouette. IMPRESSION: No acute cardiopulmonary abnormality. [facility]
[2018-01-27] MEDS ORDERED: KETOROLAC 60 MG/2 ML VIAL IVP STA (09:05)
[2018-01-27] MEDS ORDERED: ALBUTEROL NEB 2.5 MG/3 ML INH STA (09:05)
[2018-01-27] MEDS ORDERED: DEXAMETHASONE 10 MG/ML VIAL IVP STA (10:05)
[2018-01-27] MEDS ORDERED: MORPHINE 10 MG/ML VIAL IVP STA (10:05)
[2018-01-27 11:35] VITALS: BP 102/64
== END 2018-01-27 11:48 | disposition home or self-care (01) ==
LOC: ED 08:03
DX: R07.89 Other chest pain (principal)
CPT/HCPCS: 36415; 71046; 80053; 83690; 83880; 84484; 85025; 85651; 93005; 94640; 96374; 96375; 99283; 99284

== ENCOUNTER 2018-03-19 12:45 | Day surgery (SDC) | payer MEDICAID ==
--- NOTE | 2018-03-19 12:38 | ANESTHESIA ---
Pre-Anesthesia VS, & Labs - Diagnosis Dyspepsia, epigastric pain - Procedure EGD Vital Signs: Last Vital Signs Temp 36 C L 03/19/18 13:25 Pulse 77 03/19/18 13:25 Resp 16 03/19/18 13:25 BP 123/91 H 03/19/18 13:25 Pulse Ox 100 03/19/18 13:25 Height 5 ft 5 in Body Mass Index 32.5 - NPO >8 hours - Is Patient ?: Waiver signed Home Medications and Allergies Home Medications: Ambulatory Orders Omeprazole Magnesium [Prilosec] 20 mg PO DAILY 03/18/18 Alprazolam [Xanax] 0.25 mg PO PRN PRN 03/19/18 Omeprazole Magnesium [Prilosec] 20 mg PO DAILY 03/18/18 Allergies/Adverse Reactions: Allergies Allergy/AdvReac Type Severity Reaction Status Date / Time egg Allergy Unknown Verified 09/30/17 16:21 milk Allergy Unknown Verified 09/30/17 16:21 peanut Allergy Unknown Verified 09/30/17 16:21 wheat Allergy Unknown Verified 09/30/17 16:21 Anes History & Medical History - Anesthetic History Anesthesia Complications: reports: No previous complications Family history of Anesthesia Complications: Denies Family history of Malignant Hyperthermia: Denies - Medical History Cardiovascular: reports: None Pulmonary: reports: None Gastrointestinal: reports: GERD Urinary: reports: None Musculoskeletal: reports: None Endocrine/Autoimmune: reports: None Skin: reports: None Smoking Status: Never smoker - Surgical History General: Bowel surgery Gynecologic: Other Exam General: Alert, Oriented x3, Cooperative Dental: WNL Mouth Openin Fingerbreadth Neck Mobility: Normal Mallampati classification: II Respiratory: Lungs clear, Normal breath sounds, No respiratory distress, No accessory muscle use Cardiovascular: Regular rate Neurological: Normal speech Mental/Cognitive Status: Alert/Oriented X3 Cognitive Status: Within normal limits Plan Anesthesia Type: MAC Consent for Procedure(s) Verified and Reviewed: Yes Code Status: Attempt Resuscitation ASA classification: 2-Mild systemic disease Is this case an emergency?: No
[2018-03-19] MEDS ORDERED: MIDAZOLAM 2 MG/2 ML VIAL IVP ONE (13:20)
[2018-03-19] MEDS ORDERED: KETAMINE 500 MG/10 ML VIAL IVP ONE (13:20)
[2018-03-19] MEDS ORDERED: PROPOFOL 200 MG/20 ML VIAL IVP ONE (13:20)
[2018-03-19] MEDS ORDERED: LACTATED RINGERS 1,000 ML IV ONE ×2 (13:23→16:25)
[2018-03-19 14:21] LABS: BASOPHILS # (AUTO) 0.1 10^3/uL (0.0-0.1); BASOPHILS % (AUTO) 0.8 %; EOSINOPHILS % (AUTO) 0.2 %; HGB - HEMOGLOBIN 12.2 g/dL (12.0-16.0); LYMPHOCYTES # (AUTO) 1.8 10^3/uL (1.5-3.5); LYMPHOCYTES % (AUTO) 19.9 %; MEAN CORPUSCULAR HEMOGLOBIN 26.8 pg (27.0-31.0); MEAN CORPUSCULAR HGB CONC 33.8 g/dL (32.0-36.0); MEAN CORPUSCULAR VOLUME 79.2 fL (81.0-99.0); MEAN PLATELET VOLUME 8.5 fL (7.9-10.8); MONOCYTES # (AUTO) 0.5 10^3/uL (0.0-1.0); MONOCYTES % (AUTO) 6.1 %; NEUTROPHILS # (AUTO) 6.5 10^3/uL (1.5-6.6); PLT - PLATELET COUNT 299 10^3/uL (130-450); RED BLOOD COUNT 4.54 10^6/uL (4.20-5.40); RED CELL DISTRIBUTION WIDTH 14.3 % (12.0-15.0); WHITE BLOOD COUNT 8.9 x10^3/uL (4.8-10.8)
[2018-03-19 14:40] LABS: ALBUMIN/GLOBULIN RATIO 1.2 (1.0-2.2); BILIRUBIN,TOTAL 0.8 mg/dL (0.2-1.0); CALCIUM 9.4 mg/dL (8.5-10.3); CREATININE 0.9 mg/dL (0.4-1.0); MAGNESIUM 1.9 mg/dL (1.7-2.8); TOTAL PROTEIN 7.4 g/dL (6.7-8.2)
[2018-03-19] MEDS ORDERED: KETOROLAC 30 MG/ML VIAL ONE (16:41)
[2018-03-19] MEDS ORDERED: ACETAMINOPHEN 1,000 MG/100 ML 100 ML IV ONE (16:41)
[2018-03-19 16:52] VITALS: BP 120/72
== END 2018-03-19 12:46 | disposition home or self-care (01) ==
LOC: SDS 12:45
PROVIDERS: ATTEND Internal Medicine
PROC: 0DB98ZX Excision of Duodenum, Via Natural or Artificial Opening Endoscopic, Diagnostic (ICD-10-PCS; principal; 2018-03-19 14:00)
DX: R10.13 Epigastric pain (principal); K30 Functional dyspepsia; R19.4 Change in bowel habit; K62.5 Hemorrhage of anus and rectum; R53.1 Weakness; R63.4 Abnormal weight loss; K21.9 Gastro-esophageal reflux disease without esophagitis
CPT/HCPCS: 36415; 43239; 80053; 83735; 84443; 85025; 85651; J0131; J7120

== ENCOUNTER 2018-04-14 08:49 | Outpatient (CLI) | payer MEDICAID ==
[2018-04-14 13:17] LABS: HGB - HEMOGLOBIN 12.6 g/dL (12.0-16.0); MEAN CORPUSCULAR HEMOGLOBIN 27.3 pg (27.0-31.0); MEAN CORPUSCULAR HGB CONC 34.1 g/dL (32.0-36.0); MEAN PLATELET VOLUME 10.1 fL (7.9-10.8); RED BLOOD COUNT 4.6 10^6/uL (4.20-5.40); RED CELL DISTRIBUTION WIDTH 14.5 % (12.0-15.0); WHITE BLOOD COUNT 8.2 x10^3/uL (4.8-10.8)
[2018-04-14 13:32] LABS: ALBUMIN 4.6 g/dL (3.2-5.5); ALBUMIN/GLOBULIN RATIO 1.5 (1.0-2.2); CALCIUM 9.5 mg/dL (8.5-10.3); MAGNESIUM 2.3 mg/dL (1.7-2.8); TOTAL PROTEIN 7.7 g/dL (6.7-8.2)
== END 2018-04-14 08:50 | disposition home or self-care (01) ==
LOC: LAB.F 08:49
PROVIDERS: ATTEND Internal Medicine
DX: R10.11 Right upper quadrant pain (principal); R63.4 Abnormal weight loss; R53.1 Weakness
CPT/HCPCS: 36415; 80053; 83735; 84443; 85027; 85651

== ENCOUNTER 2018-04-22 19:01 | Outpatient (CLI) | payer MEDICAID ==
[2018-04-22 20:44] LABS: THYROID STIMULATING HORMONE 1.45 uIU/mL (0.34-5.60)
[2018-04-22 20:48] LABS: FREE T4 (FREE THYROXINE) 0.83 ng/dL (0.58-1.64)
== END 2018-04-22 19:02 | disposition home or self-care (01) ==
LOC: LAB 19:01
PROVIDERS: ATTEND Naturopath
DX: E03.9 Hypothyroidism, unspecified (principal); K29.70 Gastritis, unspecified, without bleeding; R53.83 Other fatigue
CPT/HCPCS: 36415; 81599; 82306; 83540; 84439; 84443; 84481; 84482

== ENCOUNTER 2018-04-26 09:20 | Emergency (ER) | payer MEDICAID ==
[2018-04-26] MEDS ORDERED: SODIUM CHLORIDE 0.9% 1,000 ML IV ONE (10:12)
--- NOTE | 2018-04-26 10:16 | ED Physician Documentation ---
History of Present Illness - Stated complaint Stated Complaint: ABD PX - Chief complaint Chief Complaint: Abd Pain - Additonal information Additional information: hx from pt 37 female to ED CC upper abd pain with eating, vomitign foam after eating, aspirating while aspeep, and BMs with undigested food has had GI sx for some time it seems has seen PMD and tried prilosec which caused adverse rxn of migraines, wt loss, poor nutrient absorption had a CT at [facility] which was reportedly neg and had an EGD also reportedly neg no fever no blood in vomit or BM no prior surgery Review of Systems Constitutional: denies: Fever, Chills Cardiac: denies: Chest pain / pressure Respiratory: denies: Dyspnea GI: reports: Abdominal Pain, Nausea, Vomiting. 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 - Allergies Allergies/Adverse Reactions: Allergies Allergy/AdvReac Type Severity Reaction Status Date / Time egg Allergy Unknown Verified 09/30/17 16:21 milk Allergy Unknown Verified 09/30/17 16:21 peanut Allergy Unknown Verified 09/30/17 16:21 wheat Allergy Unknown Verified 04/26/18 09:27 - Social History Does the pt smoke?: No Smoking Status: Never smoker PD ED PE NORMAL - Vitals Vital signs reviewed: Yes - Neck Neck: Supple, no meningeal sign - Cardiac Cardiac: RRR - Respiratory Respiratory: No respiratory distress - Abdomen Abdomen: Soft, Other (marked TTP across upper abd midline most severe, no peritoneal sx) - Derm Derm: Normal color - Neuro Neuro: Alert and oriented X 3 Results - Vitals Vitals: Vital Signs - 24 hr 04/26/18 04/26/18 04/26/18 09:24 11:29 13:26 Temperature 36.1 C L 37.0 C 37 C Heart Rate 90 84 79 Respiratory 16 16 18 Rate Blood Pressure 113/75 121/87 H 114/77 O2 Saturation 99 100 99 Oxygen O2 Source Room air - Labs Labs: Laboratory Tests 04/26/18 04/26/18 04/26/18 10:42 10:42 10:43 WBC 9.9 RBC 4.95 Hgb 13.2 Hct 39.3 MCV 79.4 L MCH 26.7 L MCHC 33.6 RDW 14.5 Plt Count 330 MPV 9.3 Neut # (Auto) 6.6 Lymph # (Auto) 2.1 Yell # (Auto) 1.0 Eos # (Auto) 0.0 Baso # (Auto) 0.1 Absolute Nucleated RBC 0.01 Nucleated RBC % 0.1 Sodium 138 Potassium 3.4 L Chloride 101 Carbon Dioxide 28 Anion Gap 9.0 BUN 11 Creatinine 1.0 Estimated GFR (MDRD) 62 L Glucose 102 H Calcium 10.1 Total Bilirubin 0.6 AST 24 ALT 22 Alkaline Phosphatase 67 Total Protein 8.3 H Albumin 5.0 Globulin 3.3 Albumin/Globulin Ratio 1.5 Lipase 32 Serum HCG, Qual NEGATIVE Urine Color YELLOW Urine Clarity CLEAR Urine pH 6.0 Ur Specific [place] 1.020 Urine Protein NEGATIVE Urine Glucose (UA) NEGATIVE Urine Ketones 40 H Urine Occult Blood SMALL H Urine Nitrite NEGATIVE Urine Bilirubin NEGATIVE Urine Urobilinogen 0.2 (NORMAL) Ur Leukocyte Esterase NEGATIVE Urine RBC 6-10 H Urine WBC 4-5 Ur Squamous Epith Cells MOD Squamous H Urine Bacteria Few Urine Mucus Few Strands Ur Microscopic Review INDICATED Urine Culture Comments NOT INDICATED - Rads (name of study) AAA Radiology: See rad report (no aspiration, no SBO, no free air) ruq sono Radiology: See rad report (no gallstones, nl ducts, fatty liver, small hamngioma) PD MEDICAL DECISION MAKING - ED course ED course: wup neg pt very frustrated I spoke to her explained that I am not saying nothing is wrong just that wup up possible in ED on holiday weekend is reassuring and further up may be needed but can be pursued as an outpt Departure - Departure Disposition: 01 Home, Self Care Clinical Impression: Vomiting Qualifiers: Vomiting type: unspecified Vomiting Intractability: non-intractable Nausea presence: unspecified Qualified Code(s): R11.10 - Vomiting, unspecified Abdominal pain Qualifiers: Abdominal location: epigastric Qualified Code(s): R10.13 - Epigastric pain Condition: Good Instructions: ED Abdominal Pain Unkn Cause Follow-Up: Diego Eckert ND [Primary Care Provider] - Comments: All the tests in the ER came back fine The xray does not show aspiration pneumonia nor a bowel blockage or perforation The ultrasound does not show any gallstones or gallbladder disease - you do have fatty changes to the liver so I recommend you avoid alcohol and tylenol and follow up with your PMD - and also a non bleeding hemangioma in the liver - but these would not cause your symptoms The blood tests were fine - normal live pancreas and kidney function No urine infection I am not saying nothing is wrong, but the ER work up is reassuring and I think it is safe for you to go home and to continue your work up as an outpatient. I would recommend a referral to GI and perhaps testing for celiac disease. Since you are sensitive to medication side effects, I have not prescribed any new medications - recommend you continue your zantac and try sleeping propped upright to prevent reflux and aspiration Forms: Activity restrictions Discharge Date/Time: 04/26/18 13:26
[2018-04-26 10:47] LABS: BASOPHILS # (AUTO) 0.1 10^3/uL (0.0-0.1); BASOPHILS % (AUTO) 0.8 %; EOSINOPHILS % (AUTO) 0.3 %; HGB - HEMOGLOBIN 13.2 g/dL (12.0-16.0); LYMPHOCYTES # (AUTO) 2.1 10^3/uL (1.5-3.5); LYMPHOCYTES % (AUTO) 21.6 %; MEAN CORPUSCULAR HEMOGLOBIN 26.7 pg (27.0-31.0); MEAN CORPUSCULAR HGB CONC 33.6 g/dL (32.0-36.0); MEAN CORPUSCULAR VOLUME 79.4 fL (81.0-99.0); MEAN PLATELET VOLUME 9.3 fL (7.9-10.8); MONOCYTES % (AUTO) 10.3 %; NEUTROPHILS # (AUTO) 6.6 10^3/uL (1.5-6.6); PLT - PLATELET COUNT 330 10^3/uL (130-450); RED BLOOD COUNT 4.95 10^6/uL (4.20-5.40); RED CELL DISTRIBUTION WIDTH 14.5 % (12.0-15.0); WHITE BLOOD COUNT 9.9 x10^3/uL (4.8-10.8)
[2018-04-26 10:47] LABS: GLUCOSE, URINE (UA) NEGATIVE (NEGATIVE); KETONES,URINE (UA) 40 mg/dL (NEGATIVE); LEUKOCYTE ESTERASE, URINE NEGATIVE (NEGATIVE); NITRITE,URINE NEGATIVE (NEGATIVE); OCCULT BLOOD,URINE SMALL (NEGATIVE); PROTEIN,URINE NEGATIVE (NEGATIVE); UROBILINOGEN,URINE 0.2 (NORMAL) E.U./dL (NORMAL)
[2018-04-26 10:51] LABS: BILIRUBIN,URINE NEGATIVE (NEGATIVE); CLARITY,URINE CLEAR (CLEAR); ICTOTEST,URINE NEGATIVE
[2018-04-26 11:02] LABS: BACTERIA,URINE Few /HPF (None Seen); MUCUS,URINE Few Strands; SQUAMOUS EPITHELIAL CELL,UR MOD Squamous (<= Few)
[2018-04-26 11:08] LABS: ALBUMIN/GLOBULIN RATIO 1.5 (1.0-2.2); ALKALINE PHOSPHATASE 67 IU/L (42-121); ALT ALANINE AMINOTRANSFERASE 22 IU/L (10-60); AST ASPARTATE AMINOTRANSFERASE 24 IU/L (10-42); BILIRUBIN,TOTAL 0.6 mg/dL (0.2-1.0); BUN - BLOOD UREA NITROGEN 11 mg/dL (6-20); CALCIUM 10.1 mg/dL (8.5-10.3); CARBON DIOXIDE - CO2 28 mmol/L (21-32); CHLORIDE 101 mmol/L (101-111); GFR - MDRD 62 (>89); GLUCOSE 102 mg/dL (70-100); LIPASE 32 U/L (22-51); SODIUM 138 mmol/L (135-145); TOTAL PROTEIN 8.3 g/dL (6.7-8.2)
[2018-04-26 11:09] LABS: HCG,QUALITATIVE BLOOD NEGATIVE
--- NOTE | 2018-04-26 11:44 | Ultrasound Report ---
Reason: upper abd pain NV with eating Procedure Date: 04/26/2018 Accession Number: [id number] / [id number] Procedure: US - Abdomen Limited CPT Code: FULL RESULT: EXAM: ABDOMEN ULTRASOUND LIMITED, RUQ EXAM DATE: 04/26/2018 11:18 AM. CLINICAL HISTORY: Upper abd pain NV with eating. COMPARISON: 12/26/2016. TECHNIQUE: Real-time scanning was performed with static images obtained. FINDINGS: Liver: Mild diffuse increased echogenicity again demonstrated, consistent with fatty infiltration. A 9 mm nodular echogenic focus is again demonstrated and most consistent with an incidental small benign hemangioma. No other masses. Normal size, right lobe length 12.4 cm. Main portal vein flow: Hepatopetal. Gallbladder: Relatively contracted. No stones, Pa wall thickening, or sonographic Villalobos's sign. Biliary System: CBD measures 5.5 mm. No intrahepatic or extrahepatic ductal dilatation. Other: Right kidney appears unremarkable. No free fluid. IMPRESSION: 1. No cholelithiasis or cholecystitis. 2. Stable hepatic fatty infiltration and small hepatic hemangioma. RADIA
--- NOTE | 2018-04-26 12:17 | XRAY Report ---
Reason: upper abd pain NV aspirated Procedure Date: 04/26/2018 Accession Number: [id number] / [id number] Procedure: XR - Abdomen Acute CPT Code: FULL RESULT: EXAM: ABDOMINAL SERIES AND PA CHEST EXAM DATE: 04/26/2018 11:55 AM. CLINICAL HISTORY: Upper abd pain NV aspirated. COMPARISON: 2 view chest 01/27/2018. Abdomen comparison.. TECHNIQUE: 2 views abdomen and 1 view chest. FINDINGS: CHEST: Lungs/Pleura: No focal opacities. No effusion or pneumothorax. Mediastinum: Within exam limitations, cardiomediastinal contour is normal. ABDOMEN: Bowel Gas Pattern: Within normal limits. No dilated loops or abnormal fluid levels. Moderate stool volume within the colon. Free Air: None. Other: None. IMPRESSION: Normal abdominal series (including 1-view chest). RADIA
[2018-04-26 13:27] VITALS: BP 114/77
== END 2018-04-26 13:26 | disposition home or self-care (01) ==
LOC: ED 09:20
DX: R11.10 Vomiting, unspecified (principal); R10.13 Epigastric pain; D18.09 Hemangioma of other sites; K76.0 Fatty (change of) liver, not elsewhere classified
CPT/HCPCS: 36415; 74022; 76705; 80053; 81001; 81003; 83690; 84703; 85025; 87086; 99283

== ENCOUNTER 2018-09-18 20:59 | Outpatient (CLI) | payer OTHER ==
--- NOTE | 2018-09-19 01:49 | Ultrasound Report ---
Reason: CHRONIC PELVIC PAIN IN FEMALE Procedure Date: 09/18/2018 Accession Number: [id number] / [id number] Procedure: US - Pelvic w/Transvaginal CPT Code: FULL RESULT: EXAM: PELVIC ULTRASOUND EXAM DATE: 09/18/2018 09:41 PM. CLINICAL HISTORY: CHRONIC PELVIC PAIN IN FEMALE. COMPARISON: PELVIC W/TRANSVAGINAL 08/19/2017 7:[address] ABDOMEN PELVIS W CONTRAST 02/06/2018 2:25 PM. TECHNIQUE: Realtime transabdominal pelvic scan performed to identify the uterus and adnexa and as an overview of other pelvic structures, followed by transvaginal scan to provide greater detail of the uterus and adnexa, with static image documentation. FINDINGS: Uterus: 9.7 x 5.6 x 4.5 cm, volume 127 cc. Anteverted position. Normal overall size and echotexture. Masses: None. Endometrium: 8 mm. Normal. Cervix: Complex nabothian cyst measuring 9 mm. Right Ovary: 3.0 x 3.5 x 2.4 cm, volume 17 cc. Normal echotexture and blood flow. Likely right hydrosalpinx seen in the right adnexa. Left Ovary: 3.0 x 2.9 x 2.6 cm, volume 12 cc. Normal echotexture and blood flow. Free Fluid: Small amount. Other: None. IMPRESSION: Likely right hydrosalpinx. Normal uterus and ovaries. RADIA
== END 2018-09-18 21:00 | disposition home or self-care (01) ==
LOC: DI 20:59
PROVIDERS: ATTEND Physician Assistant
DX: R10.2 Pelvic and perineal pain (principal); G89.29 Other chronic pain
CPT/HCPCS: 76830; 76856

== ENCOUNTER 2024-01-06 08:03 | Emergency (ER) | payer OTHER ==
[2024-01-06 08:41] LABS: BASOPHILS # (AUTO) 0.1 10^3/uL (0.0-0.1); BASOPHILS % (AUTO) 0.5 %; EOSINOPHILS % (AUTO) 0.2 %; HCT - HEMATOCRIT 35.9 % (37.0-47.0); HGB - HEMOGLOBIN 11.3 g/dL (12.0-16.0); LYMPHOCYTES # (AUTO) 1.2 10^3/uL (1.5-3.5); LYMPHOCYTES % (AUTO) 7.9 %; MEAN CORPUSCULAR HEMOGLOBIN 23.7 pg (27.0-31.0); MEAN CORPUSCULAR HGB CONC 31.5 g/dL (32.0-36.0); MEAN CORPUSCULAR VOLUME 75.4 fL (81.0-99.0); MONOCYTES # (AUTO) 0.7 10^3/uL (0.0-1.0); MONOCYTES % (AUTO) 4.8 %; NEUTROPHILS # (AUTO) 12.8 10^3/uL (1.5-6.6); NEUTROPHILS % (AUTO) 86.1 %; PLT - PLATELET COUNT 319 10^3/uL (130-450); RED BLOOD COUNT 4.76 10^6/uL (4.20-5.40); RED CELL DISTRIBUTION WIDTH 15.9 % (12.0-15.0); WHITE BLOOD COUNT 14.9 x10^3/uL (4.8-10.8)
[2024-01-06] MEDS: ONDANSETRON 4 MG/2 ML VIAL IVP STA (08:49)
[2024-01-06] MEDS: SODIUM CHLORIDE 0.9% 1,000 ML IV STA (08:49)
[2024-01-06] MEDS: KETOROLAC 30 MG/ML VIAL IVP STA (08:50)
[2024-01-06 08:51] LABS: ALBUMIN 4.5 g/dL (3.2-5.5); ALBUMIN/GLOBULIN RATIO 1.4 (1.0-2.2); BILIRUBIN,TOTAL 0.6 mg/dL (0.2-1.0); CALCIUM 9.5 mg/dL (8.5-10.3); CREATININE 0.8 mg/dL (0.6-1.3); POTASSIUM 3.7 mmol/L (3.5-4.5); TOTAL PROTEIN 7.8 g/dL (6.4-8.9)
[2024-01-06] MEDS: HYDROmorphone 1 MG/ML CARPUJECT IVP STA (08:52)
--- NOTE | 2024-01-06 08:59 | ED Physician Documentation ---
History of Present Illness - Stated complaint Stated Complaint: R SIDE PX - Chief complaint Chief Complaint: Abd Pain - History obtained from History obtained from: Patient - Additonal information Additional information: The patient comes to the emergency department chief complaint of right flank pain that started suddenly about 3 hours ago. She states it is a combination of sharp and burning and goes from her right flank into her back and into her lower quadrant. She states she gets this every month when she is on her period, ever since having her right fallopian tube removed, but has not followed up with her GRAPHICS PROGRAMMER about this since the surgery. She denies any fevers or chills. She has been nauseated but has not been able to vomit. No other complaints at this time. 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 - Allergies Allergies/Adverse Reactions: Allergies Allergy/AdvReac Type Severity Reaction Status Date / Time egg Allergy Unknown Verified 01/06/24 08:11 milk Allergy Unknown Verified 01/06/24 08:11 peanut Allergy Unknown Verified 01/06/24 08:11 wheat Allergy Unknown Verified 01/06/24 08:11 - Social History Does the pt smoke?: No Smoking Status: Never smoker Does the pt drink ETOH?: No Does the pt have substance abuse?: No - Immunizations Immunizations are current?: No PD ED PE NORMAL - Vitals Vital signs reviewed: Yes - General General: Alert and oriented X 3, Well developed/nourished, Other (No distress but is standing and pacing in the room, appearing uncomfortable.) - HEENT HEENT: Atraumatic, EOMI, Moist mucous membranes - Neck Neck: Supple, no meningeal sign - Cardiac Cardiac: RRR, No murmur - Respiratory Respiratory: No respiratory distress, Clear bilaterally - Abdomen Abdomen: Soft, Non distended, Other (Right abdominal tenderness at junction of quadrants.) - Back Back: No CVA TTP, No spinal TTP - Derm Derm: Normal color, Warm and dry, No rash - Extremities Extremities: No deformity - Neuro Neuro: Other (Alert, grossly intact) - Psych Psych: Normal mood, Normal affect Results - Vitals Vitals: Vital Signs - 24 hr 01/06/24 01/06/24 01/06/24 08:11 10:45 12:00 Temperature 36.8 C Heart Rate 85 59 L 87 Respiratory 18 18 16 Rate Blood Pressure 119/70 111/69 117/62 O2 Saturation 98 95 98 01/06/24 14:43 Temperature Heart Rate 72 Respiratory 13 Rate Blood Pressure 119/78 O2 Saturation 98 Oxygen O2 Source Room air - Labs Labs: Laboratory Tests 01/06/24 01/06/24 01/06/24 08:30 08:33 08:33 WBC 14.9 H RBC 4.76 Hgb 11.3 L Hct 35.9 L MCV 75.4 L MCH 23.7 L MCHC 31.5 L RDW 15.9 H Plt Count 319 MPV 9.0 Neut # (Auto) 12.8 H Lymph # (Auto) 1.2 L [place] # (Auto) 0.7 Eos # (Auto) 0.0 Baso # (Auto) 0.1 Absolute Nucleated RBC 0.00 Nucleated RBC % 0.0 Sodium 138 Potassium 3.7 Chloride 106 Carbon Dioxide 25 Anion Gap 7.0 BUN 16 Creatinine 0.8 Estimated GFR (MDRD) 78 L Glucose 118 H Calcium 9.5 Total Bilirubin 0.6 AST 11 ALT 11 Alkaline Phosphatase 72 Total Protein 7.8 Albumin 4.5 Globulin 3.3 Albumin/Globulin Ratio 1.4 Lipase 15 Urine Color RED/BLOODY Urine Clarity CLOUDY Urine pH 6.0 Ur Specific [place] >=1.030 H Urine Protein 100 H Urine Glucose (UA) NEGATIVE Urine Ketones 15 H Urine Occult Blood LARGE H Urine Nitrite NEGATIVE Urine Bilirubin NEGATIVE Urine Urobilinogen 0.2 (NORMAL) Ur Leukocyte Esterase NEGATIVE Urine RBC TNTC H Urine WBC 0-3 Ur Squamous Epith Cells RARE Squamous Urine Bacteria Moderate H Ur Microscopic Review INDICATED Urine Culture Comments NOT INDICATED Urine HCG, Qual NEGATIVE - Rads (name of study) CT abdomen and pelvis no contrast Relevant Findings:: Final report received, See rad report (Stranding right lower quadrant but not associated with the appendix. Ultrasound recommended.) Ultrasound pelvis Relevant Findings:: Final report received, See rad report (A fibroid noted. No torsion. No ovarian mass. Otherwise unremarkable.) PD Medical Decision Making - ED course Complexity details: reviewed results, re-evaluated patient, considered differential, d/w patient, d/w family ED course: The patient was initially worked up with labs, UA, and treated symptomatically with IV Toradol, Zofran, and Dilaudid. She declined IV fluids, stating "they make my pain worse". The patient's laboratory studies showed a white blood cell count of 14.9. Her urinalysis was positive for blood but not distinctly positive for infection, considering the mount of blood in the urine. The patient with CT scan, given her right-sided pain that had not been evaluated since her surgery and given her elevated white blood cell count. This did show stranding in the right lower quadrant but radiologist noted the seem to be distinctly separate from patient's appendix. It appeared that it might be associated with the ovary and ultrasound was recommended by radiologist to further evaluate this. Unfortunately, the patient had already had an extended wait in the ED, due to a very prolonged turnaround time for the CT read. I did go to let her know that we would not be waiting for ultrasound. I explained her laboratory findings and the CT results showing the possible inflammation around her ovary to her and informed her why would be getting an ultrasound. I did also advise her that if the ultrasound looks okay, she will be able to go home. I asked the patient how her pain was doing and she stated that it was "manageable". She did not request any further pain medication. The patient did look much more comfortable, now lying in bed calmly after being up on her feet, wincing and groaning. The ultrasound did take some time to get done but ultimately was completed and found a single fibroid in the uterus. Patient did have a surgically absent tube on the right but there were no other abnormalities noted. The patient was stable for discharge. When nursing staff checked in with her on 2 different occasions prior to her discharge, she stated her pain was a 3 out of 10. Given the chronic recurrent nature of the patient's pain, I have not prescribed further pain medication for her, but referred her back to her primary doctor or gynecology. The patient was advised again via discharge papers regarding the results that I had already discussed with her. She was also advised that her ultrasound did not show any concerning abnormalities at this time. I have advised her to follow-up with GRAPHICS PROGRAMMER regarding her ongoing dysmenorrhea. Departure - Departure Disposition: 01 Home, Self Care Clinical Impression: Acute flank pain, Dysmenorrhea Condition: Stable Instructions: ED Cramping Menstrual Comments: Your CT scan showed a little bit of inflammation in the region of your right ovary, as we discussed, so an ultrasound was obtained to get a better look at The ovary. There may be some inflammation from pulling of scar tissue but otherwise no abnormalities were noted regarding the ovary. You do have a fibroid in your uterus, which can impact your bleeding around your period. You should follow-up with your GRAPHICS PROGRAMMER about this to determine whether any intervention is needed. You should also follow-up to discuss your painful periods. No emergent condition has been identified in the emergency department today. Forms: PCP List Discharge Date/Time: 01/06/24 14:43
[2024-01-06 09:08] LABS: HCG UR QUAL NEGATIVE
[2024-01-06 09:13] LABS: BILIRUBIN,URINE NEGATIVE (NEGATIVE); GLUCOSE, URINE (UA) NEGATIVE (NEGATIVE); KETONES,URINE (UA) 15 mg/dL (NEGATIVE); LEUKOCYTE ESTERASE, URINE NEGATIVE (NEGATIVE); NITRITE,URINE NEGATIVE (NEGATIVE); OCCULT BLOOD,URINE LARGE (NEGATIVE); PROTEIN,URINE 100 mg/dL (NEGATIVE); UROBILINOGEN,URINE 0.2 (NORMAL) E.U./dL (NORMAL)
[2024-01-06 09:14] LABS: CLARITY,URINE CLOUDY (CLEAR)
[2024-01-06 09:28] LABS: WBC,URINE 0-3 /HPF (0-5)
[2024-01-06 09:29] LABS: BACTERIA,URINE Moderate /HPF (None Seen); RBC,URINE TNTC /HPF (0-5); SQUAMOUS EPITHELIAL CELL,UR RARE Squamous (<= Few)
--- NOTE | 2024-01-06 10:57 | CT Report ---
PROCEDURE: Abdomen/Pelvis WO INDICATIONS: R flank pain TECHNIQUE: A CT scan of the abdomen and pelvis was performed without the use of intravenous contrast. Images we re recorded and evaluated at appropriate window settings. Reformats: coronal and sagittal. For radiat ion dose reduction, the following was used: automated exposure control, adjustment of mA and/or kV ac cording to patient size. COMPARISON: None. FINDINGS: Image quality: Diagnostic. Lower chest: Unremarkable. Liver: No contour-deforming mass. Gallbladder: No radiopaque stones or wall thickening. Biliary tree: No intrahepatic or extrahepatic dilation, accounting for age. Spleen: No splenomegaly. Pancreas: No pancreatic ductal dilation. Adrenals: No adrenal nodule. Kidneys and ureters: No hydronephrosis. No contour-deforming mass. Stomach, bowel and peritoneum: No gastric or small bowel dilation. No abnormal wall thickening. No pa thologic free fluid. Normal appendix. Lymph nodes: No central or retroperitoneal adenopathy. Vessels: No infrarenal aortic aneurysm. Reproductive organs: There is focal fat stranding in the right lower quadrant, distinctly separate of the noninflamed appendix. This may be in close proximity to the right ovary, which is difficult to v iew with adjacent small bowel around this region (series 2, image 103). Bladder: Bladder wall thickness is normal, accounting for underdistention. No calcified bladder stone s. Pelvic lymph nodes: No adenopathy by size criteria. Bones: No aggressive osseous abnormality. Other: No significant ventral or inguinal hernia. IMPRESSION: No hydronephrosis or obstructing renal stone. There is focal fat stranding in the right lower quadrant, distinctly separate of the noninflamed appe ndix. This may be in close proximity to the right ovary, which is difficult to view with adjacent sma ll bowel around this region (series 2, image 103). Findings may indicate or enteritis or ovarian path ology. Consider pelvic ultrasound with Doppler. Reviewed by: Jose E Forbes MD on 01/06/2024 10:56 AM PDT Approved by: Jose E Forbes MD on 01/06/2024 10:56 AM PDT Station ID: [id number]
[2024-01-06 12:31] VITALS: O2SAT 98
--- NOTE | 2024-01-06 14:27 | Ultrasound Report ---
PROCEDURE: Pelvic w/Doppler Complete INDICATIONS: pelvic pain, R, stranding around R ovary TECHNIQUE: Real-time endovaginal scanning was performed of the pelvic organs, with image documentation. COMPARISON: None. FINDINGS: Uterus: Uterus is anteverted and normal in size at 11.5 x 5.7 x 7.0 cm. The myometrium is homogeneo us. The endometrium measures 8.2 mm in combined thickness. 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 Ovaries: The right ovary measures 4.0 x 2.2 x 2.1 cm, with a calculated ovarian volume of 9.5 cc. T he left ovary measures 2.4 x 2.0 x 2 point cm, with a calculated ovarian volume of 7.4 cc. The ovari es have a normal sonographic appearance. Less than 12 follicles can be seen in each ovary. No adnex al masses are seen. No cystic lesions measuring greater than 3 cm. Other: No pathologic free abdominal or pelvic fluid. IMPRESSION: No evidence of ovarian torsion. Uterine fibroid. Reviewed by: Darya Fish MD, PhD on 01/06/2024 2:26 PM PDT Approved by: Darya Fish MD, PhD on 01/06/2024 2:26 PM PDT Station ID: [id number]
[2024-01-06 14:55] VITALS: BP 119/78
== END 2024-01-06 14:43 | disposition home or self-care (01) ==
LOC: ED 08:03
DX: N94.6 Dysmenorrhea, unspecified (principal); R10.31 Right lower quadrant pain
CPT/HCPCS: 36415; 74176; 76856; 80053; 81001; 81025; 83690; 85025; 93975; 96374; 96375; 99283; 99284; J1170; 81003; 87086